=== PATIENT | male | born 2000 | race Caucasian/White ===

== ENCOUNTER 2022-12-15 23:43 | Emergency (ER) | payer OTHER ==
[~2022-12-15] VITALS: Ht 175.3 cm; Wt 94.1 kg
[~2022-12-15 23:43] MED LIST: OMNICEF 300MG300 MG PO
[2022-12-15 23:45] VITALS: TEMP 98.6
[2022-12-16 00:14] LABS: BASO # 0.1 K/mm3 (0.0-0.2); BASO % 1.6 % (0.0-2.0); EOS # 0.2 K/mm3 (0.0-0.7); EOS % 2.4 % (0.0-4.0); GRAN # 3.7 K/mm3 (1.4-6.5); GRAN % 46.2 % (42.2-75.2); HEMATOCRIT 45.1 % (42.0-52.0); HEMOGLOBIN 15.8 g/dl (13.5-18.0); LYMPH # 3.4 K/mm3 (1.2-3.4); LYMPH % 42.5 % (20.0-51.0); MEAN CELL VOLUME 85 fl (80.0-100.0); MEAN CORPUSCULAR HEMOGLOBIN 30 pg (27-31); MEAN CORPUSCULAR HGB CONC 35 g/dl (33.0-37.0); MEAN PLATELET VOLUME 9.7 fl (7.4-10.4); MONO # 0.6 K/mm3 (0.1-0.6); MONO % 7.1 % (1.7-9.3); PLATELET COUNT 244 K/mm3 (130-400); RED BLOOD COUNT 5.31 M/mm3 (4.20-5.60); REDCELL DISTRIBUTION WIDTH-CV 12.3 % (11.5-14.5)
[2022-12-16 00:32] LABS: ALBUMIN 4.3 gm/dL (3.5-5.0); BILIRUBIN,TOTAL 0.4 mg/dL (0.2-1.2); CALCIUM 9.7 mg/dL (8.4-10.2); CREATININE, serum 1.08 mg/dL (0.72-1.25); TOTAL PROTEIN 7.4 gm/dL (6.2-8.1)
[2022-12-16 00:51] LABS: PROLACTIN 10.5 ng/mL (3.46-19.40)
[2022-12-16 01:10] VITALS: BP 126/88; PULSE 65
== END 2022-12-16 01:13 | disposition home or self-care (01) ==
LOC: COL.ER 23:43
PROVIDERS: Family Medicine
DX: R55 Syncope and collapse (principal)
CPT/HCPCS: J7120